=== PATIENT | female | born 1970 | race African-American/Black ===

== ENCOUNTER 2018-09-11 21:57 | Emergency (ER) | payer OTHER ==
[~2018-09-11] VITALS: Ht 152.4 cm; Wt 80.0 kg
[2018-09-11] MEDS ORDERED: DEXAMETHASONE 10 MG/ML VIAL IM ONE (23:45)
[2018-09-11] MEDS ORDERED: ALBUTEROL (0.083%) 2.5MG/3ML NEB HHN ONE (23:45)
[2018-09-12 01:47] VITALS: BP 121/69
== END 2018-09-12 01:47 | disposition home or self-care (01) ==
LOC: ER 21:57
DX: J06.9 Acute upper respiratory infection, unspecified (principal); F12.10 Cannabis abuse, uncomplicated
CPT/HCPCS: 71045; 81025; 96372; 99283; J1100; J7611